=== PATIENT | female | born 1955 | race Caucasian/White ===

== ENCOUNTER 2016-06-09 08:13 | Day surgery (SDC) | payer BC, OTHER ==
[~2016-06-09 08:13] MED LIST: RINGERS SOLUTION,LACTATED 1,000 ML IV PRN
--- OUTSIDE RECORDS SUMMARY | 2016-06-09 08:17 | XMS REPORT | Continuity of Care Document ---
:1955 Author Organization [facility] ([facility]) Address [address] [place] [address] Phone [phone] Care Team Providers Name Role Phone Sp Goins Primary Care Provider [phone] Source Comments This disclosure is being made pursuant to the Care Everywhere program, applicable federal and state laws, and may not contain all informaitonavailable regarding this patient.[facility] ([facility]) Active Allergies and Adverse Reactions Allergen Noted Date Severity Reactions Comments Hydrocodone-Acetaminophen 03/17/2011 Nausea & Vomiting,Dizziness Metronidazole 03/17/2011 Nausea & Vomiting,Dizziness Current Medications Prescription Sig. Disp. Refills Start Date End Date Status amLODIPine 5 mg tablet Take 5 mg by mouth Active daily. hydrochlorothiazide 25 mg Take 25 mg by mouth Active tablet daily. fluticasone 50 use 2 Sprays into Active mcg/Actuation nasal spray the nose daily. lisinopril 20 mg tablet Take 40 mg by mouth Active daily. aspirin 81 mg EC tablet Take 81 mg by mouth Active daily. carvedilol 25 mg tablet Take 12.5 mg by Active mouth 2 times daily with meals. traMADol 50 mg tablet Take 1-2 Tabs by 90 Tab 3 03/17/2011 Active mouth every 8 hours as needed. Indications: Pain, Osteoarthritis. CKD III. cetirizine 10 mg tablet take 1 tablet 06/28/2008 Active (10MG) by ORAL route every day venlafaxine 150 mg XR Take 150 mg by Active tablet mouth daily oxyCODONE-acetaminophen Take 1 Tab by mouth Active 5-325 mg per tablet every 4 hours as needed Do Not exceed 4000 mg of acetaminophen per 24 hours. 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 CKD (chronic kidney disease) stage 3, GFR 30-59 ml/min 03/17/2011 Osteoarthritis 03/17/2011 Right bundle branch block 03/17/2011 HTN (hypertension) 03/17/2011 Personal history of endometriosis 03/17/2011 Renal cysts, acquired, bilateral 03/17/2011 Asthma 03/17/2011 Social History Tobacco Use Types Packs/Day Years Used Date Never Smoker Smokeless Tobacco: Never Used Tobacco Cessation:Counseling Given: Yes Comments: Alcohol Use Drinks/Week oz/Week Comments No Last Filed Vital Signs Vital Sign Reading Time Taken Blood Pressure 148/69 03/17/2011 9:02 AM [employer] Pulse 67 03/17/2011 9:02 AM [employer] Temperature 35.8 C (96.4 F) 03/17/2011 9:02 AM [employer] Respiratory Rate - - Height 1.61 m (5' 3.39") 03/17/2011 9:02 AM [employer] Weight 124.5 kg (274 lb 7.6 oz) 03/17/2011 9:02 AM [employer] Body Mass Index 48.03 03/17/2011 9:02 AM [employer] Oxygen Saturation - - Plan of Care Health Maintenance Due Date Last Done Comments HCV Screening 1955 Hepatitis B Vaccine (1 of 3 - Primary Series) 1955 Tdap Vaccine 1966 Lipid Disorder Screening 1973 MMR Vaccine 1973 Td Vaccine 1973 Pneumococcal Vaccine (1 of 1 - PPSV23) 1974 Cervical Cancer Screening 1985 Mammogram 1995 Colonoscopy 03/22/2005 Zoster Vaccine 2015 Influenza Vaccine: Seasonal (#1) 09/22/2015 Results from Last 3 Months Not on file
[2016-06-09] MEDS ORDERED: RINGERS SOLUTION,LACTATED 1,000 ML IV ONE (08:56)
[2016-06-09 11:24] VITALS: BP 130/73
--- NOTE | 2016-06-09 12:47 | OR ---
Operative Report - Dictated Report Narrative: OPERATIVE REPORT DATE OF OPERATION: 06/09/2016 PREOPERATIVE DIAGNOSIS: No recent dedicated colon studies. Diverticulosis POSTOPERATIVE DIAGNOSIS: Moderate sigmoid diverticulosis OPERATION: Colonoscopy SURGEON: Trang Arboleda MD ANESTHESIA: MILENA Bowden CRNA INDICATIONS FOR PROCEDURE: The patient is a 61-year-old female referred by Dr. Goins. Her last colonoscopy was in 2004 and revealed diverticulosis. There is no family history of colon cancer. The patient does have a tendency to constipation and occasional bouts of left lower quadrant discomfort. FINDINGS: Moderate sigmoid diverticulosis otherwise normal colonoscopy to the cecum NARRATIVE OF PROCEDURE: The patient was identified in the holding area, and prior to the administration of anesthetic, a multidisciplinary timeout was observed. With the patient in the left lateral position and after the administration of intravenous sedation, the perineum was inspected. There was no evidence of pilonidal disease or skin breakdown. The external appearance of the anus was normal. Sphincter tone was good. The flexible fiberoptic colonoscope was inserted into the rectum which was insufflated with air. The rectal mucosa and submucosal vascular pattern appeared normal, the prep was seen to be complete. The scope was advanced through the sigmoid colon, which contained numerous large not impacted noninflamed diverticular openings. The scope was advanced up the descending colon, and around the splenic flexure where the triangular haustral architecture of the transverse colon was seen. The scope was advanced across the transverse colon, around the hepatic flexure to the cecum, where the confluence of tenia and the ileocecal valve were identified. Position was additionally confirmed by palpation. The mucosa at this level appeared normal. The scope was then slowly withdrawn in a circular fashion so that all aspects of colonic mucosa were inspected. The colon was capacious in character and somewhat tortuous and course requiring standard reduction maneuvers and gentle external manual compression on the abdomen to reach the cecum. The haustral architecture appeared well preserved throughout with no evidence of external compression. The mucosa and submucosal vascular pattern appeared normal, specifically there was no gross evidence to suggest colitis or inflammatory bowel disease and no AV malformations were seen. The diverticulosis was moderate in degree and confined primarily to the sigmoid colon. No polyps were encountered. The scope was gradually withdrawn to the level of the rectum. As much insufflated air as possible was removed. The scope was withdrawn from the patient and the procedure terminated. The patient tolerated the anesthetic and procedure well without complication and was transferred back to the ambulatory surgery area awake and in stable condition. The patient remained stable throughout a period of postoperative observation. She denied abdominal discomfort, was able to tolerate by mouth intake, and was up without assistance. I shared the operative findings with the patient and she was given copies of the photographs which appear in the medical record. She was discharged home with instructions not to engage in hazardous activity today , but may resume normal activity tomorrow, and advance diet as tolerated. She is to continue those medications as listed in the history and physical exam. A pamphlet on diverticular disease was reviewed with her and given to her. She has not had much change by the use of Benefiber and I suggested she continue Benefiber with the addition of MiraLAX and titrate this as needed. She is to call the office with progress reports. RECOMMENDATION: Colon surveillance in 10 years depending upon findings and symptoms Reviewed and electronically signed
== END 2016-06-09 08:14 | disposition home or self-care (01) ==
LOC: AMB 08:13
PROVIDERS: ATTEND Surgery
DX: Z12.11 Encounter for screening for malignant neoplasm of colon (principal); K57.30 Diverticulosis of large intestine without perforation or abscess without bleeding; I12.9 Hypertensive chronic kidney disease with stage 1 through stage 4 chronic kidney disease, or unspecified chronic kidney disease; N18.3 Chronic kidney disease, stage 3 (moderate); E78.5 Hyperlipidemia, unspecified; J45.909 Unspecified asthma, uncomplicated; I25.10 Atherosclerotic heart disease of native coronary artery without angina pectoris; E66.9 Obesity, unspecified; Z68.42 Body mass index [BMI] 45.0-49.9, adult